=== PATIENT | female | born 1985 | race Caucasian/White ===

== ENCOUNTER 2016-08-12 11:53 | Emergency (ER) | payer OTHER ==
[~2016-08-12] VITALS: Ht 157.5 cm; Wt 92.8 kg
[~2016-08-12 11:53] MED LIST: IBUP-1277 PO; LEVOIUD INT UTER
[2016-08-12 11:55] VITALS: TEMP 36.9; Ht 157.5 cm; Wt 92.8 kg
[2016-08-12 12:42] LABS: BASO % 0.2 %; BASO ABS # 0.02 K/uL (0-0.2); COMPLETE YES; EOS % 0.9 %; HEMATOCRIT 36.8 % (37-47); IG% 0.6 %; LYMPH % 16.5 %; LYMPH ABS # 2.06 K/uL (1.2-3.4); MEAN CELL VOLUME 87.4 fL (80-100); MEAN CORPUSCULAR HEMOGLOBIN 30.6 pg (25-34); MEAN CORPUSCULAR HGB CONC 35.1 g/dl (32-36); MEAN PLATELET VOLUME 9.3 fL (7.4-10.4); MONO % 4.7 %; NEUT % 77.1 %; PLATELET COUNT 254 K/uL (130-400); RED BLOOD COUNT 4.21 M/uL (4.2-5.4)
[2016-08-12] MEDS ORDERED: PRENTAB26 PO (12:42)
[2016-08-12] MEDS ORDERED: ZNT/150 PO (12:42)
[2016-08-12 12:51] LABS: ALT/SGPT 26 U/L (12-78); BLOOD UREA NITROGEN 8 mg/dl (7-18); BUN/CREATININE RATIO 13.4 (10-20); CARBON DIOXIDE 21 mmol/L (21-32); CHLORIDE 106 mmol/L (98-107); CREATININE 0.56 mg/dl (0.60-1.20); GLUCOSE 83 mg/dl (70-99); POTASSIUM 3.8 mmol/L (3.5-5.1); SODIUM 137 mmol/L (136-145)
[2016-08-12 12:55] VITALS: O2SAT 98
[2016-08-12 12:55] LABS: ALB/GLOB RATIO 0.8 (0.9-2); ALKALINE PHOSPHATASE 44 U/L (45-117); AST/SGOT 11 U/L (15-37)
--- NOTE | 2016-08-12 13:15 | DIAGNOSTIC IMAGING REPORT ---
CHEST ONE VIEW PORTABLE CLINICAL HISTORY: left rib pain- pt COMPARISON STUDY: No previous studies for comparison. FINDINGS: The cardiac and mediastinal contours are normal. There is no evidence of focal pulmonary consolidation. There is no evidence of failure. No pleural effusions are visualized.[ No pneumothorax is visualized. No left-sided rib fractures are visualized. IMPRESSION: No active disease in the chest. Electronically signed by: John Gibson M.D. 08/12/2016 1:14 PM Dictated Date/Time: 08/12/2016 1:14 PM
--- NOTE | 2016-08-12 14:26 | EMERGENCY ROOM VISIT NOTE ---
History First contact with patient: 12:14 Chief Complaint: ABDOMINAL PAIN Stated Complaint: PAIN LEFT SIDE UNDER BREST, 14 WKS PREG Nursing Triage Summary: pt presents with abdominal pain she is 14 weeks is having left upper quadrant pain, describes the pain as a dull ache the pain radiates to epigastric area denies nausea states she has had vomiting and diarrhea that last few days, nothing this morning she has had emesis throughout her History of Present Illness The patient is a 30 year old female who presents to the Emergency Room with complaints of pain under her left breast. The patient reports that she initially developed this pain approximately 12 hours ago while she was laying down. She states it is a sharp pain in her left rib/upper abdomen. It is constant and worse with movement. She states it does radiate across to the center of her abdomen. She rates her overall discomfort a 6/10. She states that it feels tight and slightly more painful when she takes a deep breath. The patient is currently 14 weeks and is seen by [facility] BUSINESS DEVELOPER. She does report there has been a significant amount of vomiting with this , but it has otherwise been uneventful. The patient has had a few episodes of diarrhea earlier this week. She denies any blood in her stools, shortness of breath, palpitations or syncope. The patient denies any personal or family history of blood clots. She does not smoke. She denies any recent long travel or leg swelling/pain. She denies any cardiac history. Review of Systems A complete 10-point Review of Systems was discussed with the patient, with pertinent positives and negatives listed in the History of Present Illness. All remaining Review of Systems questions can be considered negative unless otherwise specified. Past Medical/Surgical History Medical Problems: (1) Chronic back pain (2) Psoriasis Family History Heart disease Stroke Social History Smoking Status: Former Smoker Drug Use: none Marital Status: Housing Status: lives with significant other Occupation Status: employed Current/Historical Medications Scheduled Multivit/Min/Iron/Fol Ac/Pren ( Vitamin), 1 TAB PO DAILY Scheduled PRN Ranitidine Hcl (Zantac), 150 MG PO DAILY PRN for UPSET STOMACH Allergies Uncoded Allergies: MINT (Adverse Reaction, Unknown, nausea, 03/11/15) Physical Exam Vital Signs Date Time Temp Pulse Resp B/P Pulse Ox O2 Delivery O2 Flow Rate FiO2 08/12/16 14:38 66 16 115/79 96 08/12/16 12:59 79 08/12/16 12:55 98 Room Air 08/12/16 12:55 92 16 120/84 98 Room Air 08/12/16 11:55 36.9 86 16 130/83 98 Room Air Physical Exam VITALS: Vitals are noted on the nurse's note and reviewed by myself. Vital signs stable. GENERAL: This is a 30-year-old female, in no acute distress, nondiaphoretic, well-developed well-nourished. SKIN: Capillary reflex less than 2 seconds. HEENT: Normocephalic. PERRLA. EOMI. Nares patent. Mucous membranes moist. Neck is supple without nuchal rigidity. HEART: Regular rate and rhythm without murmurs gallops or rubs. LUNGS: Clear to auscultation bilaterally without wheezes, rales or rhonchi. No retractions or accessory muscle use. ABDOMEN: Positive bowel sounds x 4. Soft, mild tenderness of the left upper quadrant. NEURO: Patient was alert and oriented to person place and time. Medical Decision & Procedures ER Provider Diagnostic Interpretation: CHEST ONE VIEW PORTABLE CLINICAL HISTORY: left rib pain- pt COMPARISON STUDY: No previous studies for comparison. FINDINGS: The cardiac and mediastinal contours are normal. There is no evidence of focal pulmonary consolidation. There is no evidence of failure. No pleural effusions are visualized.[ No pneumothorax is visualized. No left-sided rib fractures are visualized. IMPRESSION: No active disease in the chest. Laboratory Results 08/12/16 12:15 Red Blood Count 4.21, Mean Corpuscular Volume 87.4, Mean Corpuscular Hemoglobin 30.6, Mean Corpuscular Hemoglobin Concent 35.1, Mean Platelet Volume 9.3, Neutrophils (%) (Auto) 77.1, Lymphocytes (%) (Auto) 16.5, Monocytes (%) (Auto) 4.7, Eosinophils (%) (Auto) 0.9, Basophils (%) (Auto) 0.2, Neutrophils # (Auto) 9.65, Lymphocytes # (Auto) 2.06, Monocytes # (Auto) 0.59, Eosinophils # (Auto) 0.11, Basophils # (Auto) 0.02 08/12/16 12:15 Test 08/12/16 12:15 White Blood Count 12.50 K/uL (4.8-10.8) Red Blood Count 4.21 M/uL (4.2-5.4) Hemoglobin 12.9 g/dL (12.0-16.0) Hematocrit 36.8 % (37-47) Mean Corpuscular Volume 87.4 fL (80-100) Mean Corpuscular Hemoglobin 30.6 pg (25-34) Mean Corpuscular Hemoglobin Concent 35.1 g/dl (32-36) Platelet Count 254 K/uL (130-400) Mean Platelet Volume 9.3 fL (7.4-10.4) Neutrophils (%) (Auto) 77.1 % Lymphocytes (%) (Auto) 16.5 % Monocytes (%) (Auto) 4.7 % Eosinophils (%) (Auto) 0.9 % Basophils (%) (Auto) 0.2 % Neutrophils # (Auto) 9.65 K/uL (1.4-6.5) Lymphocytes # (Auto) 2.06 K/uL (1.2-3.4) Monocytes # (Auto) 0.59 K/uL (0.11-0.59) Eosinophils # (Auto) 0.11 K/uL (0-0.5) Basophils # (Auto) 0.02 K/uL (0-0.2) RDW Standard Deviation 38.2 fL (36.4-46.3) RDW Coefficient of Variation 12.0 % (11.5-14.5) Immature Granulocyte % (Auto) 0.6 % Immature Granulocyte # (Auto) 0.07 K/uL (0.00-0.02) D-Dimer 410 ug/L FEU (0-500) Anion Gap 10.0 mmol/L (3-11) Est Creatinine Clear Calc Drug Dose 153.0 ml/min Estimated GFR () 143.0 Estimated GFR (Non- 123.4 BUN/Creatinine Ratio 13.4 (10-20) Calcium Level 9.0 mg/dl (8.5-10.1) Total Bilirubin 0.2 mg/dl (0.2-1) Aspartate Amino Transf (AST/SGOT) 11 U/L (15-37) Alanine Aminotransferase (ALT/SGPT) 26 U/L (12-78) Alkaline Phosphatase 44 U/L (45-117) Troponin I < 0.015 ng/ml (0-0.045) Total Protein 7.4 gm/dl (6.4-8.2) Albumin 3.2 gm/dl (3.4-5.0) Globulin 4.2 gm/dl (2.5-4.0) Albumin/Globulin Ratio 0.8 (0.9-2) Lipase 115 U/L (73-393) ECG Rate (beats per minute): 74 Rhythm: normal sinus Findings: no acute ischemic change, no ectopy, other (low voltage QRS) Change: no significant change Medical Decision Differential diagnosis includes acute coronary syndrome, pulmonary embolism, pneumothorax, pericarditis, myocarditis, endocarditis, anxiety, musculoskeletal pain, GERD, gastritis, costochondritis, among others. The patient was evaluated as above. Labs were drawn and IV access was obtained. Imaging studies were performed and read by radiology as above. The patient was reassessed multiple times during their stay in the emergency department and remained in stable condition. The patient is a 30-year-old female who presents today complaining of left- sided chest pain. Labs revealed a mild leukocytosis consistent with . No concerning anemia or electrolyte abnormalities. D-dimer was not elevated. Troponin was not elevated. EKG did not show any ST elevation and was similar to a previous EKG. Chest x-ray was unremarkable. Given the patient's 12 hour duration of symptoms and negative troponin, and do not feel that this is cardiac in nature. The patient does not have any significant risk factors for pulmonary embolism except for . Given her relatively low risk and negative d-dimer, I do not feel that further workup is necessary to rule out pulmonary embolism. I do feel the patient's symptoms are likely secondary to gastritis and recommended that she take Zantac. heart tones were documented at 130 to 140 bpm. The patient was instructed to follow-up with her SOLAR BUSINESS DEVELOPER and primary care provider. She will return for any worsening symptoms. Based on the patient's presentation, lab results, and imaging studies, I feel the patient is stable for outpatient treatment. The patient's case was reviewed with Dr. Ricci, ED attending physician, who agreed with my assessment and treatment plan. Discharge instructions were reviewed with the patient. The patient verbalized understanding of my assessment and treatment plan and was discharged home in good condition. Impression Primary Impression: Left sided chest pain Departure Information Dispostion Home / Self-Care Condition GOOD Referrals Mohamud Jackson M.D.([facility]) (PCP) Thom Vazquez MD Patient Instructions My [facility] Additional Instructions You have been treated in the Emergency Department for your chest/abdominal pain. Take Zantac OTC daily. Call your SOLAR BUSINESS DEVELOPER to schedule follow-up. For pain control, you can use the following [id number] medicines (if >12 yo): - Regular strength (325mg/tab) Tylenol (acetaminophen) 2 tabs every 4-6 hours as needed. Do not exceed 12 tablets in a 24 hour period. Avoid taking more than 4 grams (4000 mg) of Tylenol per day. This includes any other sources of acetaminophen you may take on a regular basis. You should schedule a follow-up appointment with your Primary Care Provider in 2 -3 days for further evaluation from today's Emergency Department visit. Return to the Emergency Department if your current symptoms worsen despite treatment course outlined above, or if you develop any new/concerning symptoms.
[2016-08-12 14:38] VITALS: BP 115/79; PULSE 66; O2SAT 96
== END 2016-08-12 14:40 | disposition home or self-care (01) ==
LOC: C.EDB 11:54
DX: R07.9 Chest pain, unspecified (principal); O99.89 Other specified diseases and conditions complicating pregnancy, childbirth and the puerperium; Z82.49 Family history of ischemic heart disease and other diseases of the circulatory system; Z82.3 Family history of stroke; Z87.891 Personal history of nicotine dependence

== ENCOUNTER 2016-11-10 10:23 | Emergency (ER) | payer OTHER ==
[~2016-11-10] VITALS: Ht 157.5 cm; Wt 98.8 kg
[~2016-11-10 10:23] MED LIST changes: -IBUP-1277 PO; -LEVOIUD INT UTER; +PRENTAB26 PO; +ZNT/150 PO
[2016-11-10 10:39] VITALS: TEMP 36.7; Ht 157.5 cm; Wt 98.8 kg
[2016-11-10] MEDS ORDERED: ACET-1311 PO (10:51)
[2016-11-10] MEDS ORDERED: SODIUM CHLORIDE 0.9% 1000ML 1,000 ML IV ONE (11:05)
[2016-11-10] MEDS ORDERED: SODIUM CHLORIDE 0.9% 1000ML 1,000 ML IV STA (11:05)
--- NOTE | 2016-11-10 11:13 | EMERGENCY ROOM VISIT NOTE ---
History Report prepared by Osmar: Tori Napier Under the Supervision of: Dr. Stefan Canales M.D. First contact with patient: 10:51 Chief Complaint: ANXIETY Stated Complaint: UPPER BELLY NUMB/PAIN-PANIC ATTACK-27 WKS.-ER 1ST History of Present Illness The patient is a 31 year old female who presents to the Emergency Room with complaints of persistent anxiety over the past day. She currently rates her discomfort as a 4/10 in severity. The patient states that yesterday she was sent home from work with abdominal tightness and bilateral lower back pain. She states that she rested most of the day and felt okay. The patient states that she felt fine this morning when she woke up, but started feeling anxious as she was going to drop her daughter off at a day camp. She states that while driving home she suddenly developed a panic attack. The patient states that her vision began to become blurry and states that she had to nail puller and no longer drive. She reports a history of panic attacks when she was younger, but states that today's is much worse than it had ever been. The patient states that she is 26 weeks . She states that today she has noticed abdominal numbness. The patient states that she has been hyperventilating and notes lip numbness. She denies any history of a cholecystectomy. The patient states that this morning she took Zantac and Tylenol. The patient states that she has been three times, reporting 1 child at home, 1 miscarriage, and her current . She states that she has noticed lower abdominal cramping, but denies any contractions. The patient denies any vaginal bleeding. She reports a persistent headache. The patient states that she has had high stress from work. The patient's notes that the patient has been increasingly short of breath. Source of History: patient Onset: past day Position: other (global) Symptom Intensity: 4/10 Quality: other (anxiety) Timing: other (persistent) Associated Symptoms: + headache, + SOB, + abdominal pain (cramping), + numbness (abdominal, lip) Review of Systems See HPI for pertinent positives & negatives. A total of 10 systems reviewed and were otherwise negative. Past Medical & Surgical Medical Problems: (1) Chronic back pain (2) Psoriasis Old medical records were reviewed. Nurse's notes were reviewed and I agree with. Anxiety This is her third . She has one child and had one miscarriage Family History Heart disease Stroke Social History Smoking Status: Former Smoker Drug Use: none Marital Status: Housing Status: lives with significant other Occupation Status: employed Current/Historical Medications Scheduled Multivit/Min/Iron/Fol Ac/Pren ( Vitamin), 1 TAB PO DAILY Ranitidine Hcl (Zantac), 150 MG PO BID Scheduled PRN Acetaminophen (Tylenol), 325-650 MG PO Q4 PRN for Pain Allergies Uncoded Allergies: MINT (Adverse Reaction, Unknown, nausea, 03/11/15) Physical Exam Vital Signs Date Time Temp Pulse Resp B/P (MAP) Pulse Ox O2 Delivery O2 Flow Rate FiO2 11/10/16 14:16 74 18 122/74 98 11/10/16 13:00 76 22 124/72 98 Room Air 11/10/16 10:39 36.7 101 26 165/74 99 Room Air Physical Exam General: Well developed well nourished mildly anxious and intermittently teary eyed, gravid young female, mild hyperventilation. in no acute distress, breathing comfortably on room air. Normal speech HEENT: Normal cephalic atraumatic. Pupils are equal round and reactive to light. Extraocular movements are intact. Oropharynx is pink with moist mucous membranes. No swelling of the mouth lips or tongue. Neck: Supple with a midline trachea. No meningeal signs or stiffness, no JVD or bruits. No Stridor. Chest: Clear to auscultation bilaterally. No wheezes or rhonchi. No increased work of breathing. Heart: regular rate and rhythm. Abdomen: Gravid, mildly tender in right upper quadrant, no rebound guarding or rigidity. Extremities: No cyanosis clubbing or edema. No calf tenderness or assymetry Spine/Back. Non tender to palpation. No CVA tenderness Skin: Good turgor without rashes. Neurologic exam: Cranial nerves two through 12 are intact. Motor and sensation are intact and symmetrical throughout. Medical Decision & Procedures ER Provider Diagnostic Interpretation: Radiology results as stated below per my review and radiologist interpretation: ABDOMINAL ULTRASOUND, RIGHT UPPER QUADRANT HISTORY: Right upper quadrant abdominal pain.. COMPARISON: None. FINDINGS: Pancreas: The pancreas demonstrates a normal echotexture. Liver: Unremarkable. Gallbladder: Multiple gallstones. No gallbladder wall thickening. CBD: 5 mm. Right kidney: No hydronephrosis. IMPRESSION: Cholelithiasis. Electronically signed by: Zen Day M.D. 11/10/2016 12:55 PM Dictated Date/Time: 11/10/2016 12:54 PM Limited ultrasound LIMITED (US) CLINICAL HISTORY: eval for abd pain pain TECHNIQUE: Ultrasound COMPARISON STUDY: None FINDINGS: Single, viable intrauterine . Estimated gestational age is 26 weeks 6 days. Maternal cervix is closed. Internal cervix measures 4.5 cm. Amniotic fluid index is 11.9 cm. heart rate is 140 bpm. IMPRESSION: Single, viable intrauterine with an estimated gestational age of 26 weeks 6 days gestational age. Electronically signed by: Eduard Eduardo M.D. 11/10/2016 1:03 PM Dictated Date/Time: 11/10/2016 12:55 PM Laboratory Results 11/10/16 11:40 Red Blood Count 3.84, Mean Corpuscular Volume 89.1, Mean Corpuscular Hemoglobin 29.7, Mean Corpuscular Hemoglobin Concent 33.3, Mean Platelet Volume 8.9, Neutrophils (%) (Auto) 75.4, Lymphocytes (%) (Auto) 16.0, Monocytes (%) (Auto) 5.7, Eosinophils (%) (Auto) 0.8, Basophils (%) (Auto) 0.3, Neutrophils # (Auto) 8.65, Lymphocytes # (Auto) 1.84, Monocytes # (Auto) 0.65, Eosinophils # (Auto) 0.09, Basophils # (Auto) 0.03 11/10/16 11:40 Test 11/10/16 11:40 11/10/16 11:43 White Blood Count 11.47 K/uL (4.8-10.8) Red Blood Count 3.84 M/uL (4.2-5.4) Hemoglobin 11.4 g/dL (12.0-16.0) Hematocrit 34.2 % (37-47) Mean Corpuscular Volume 89.1 fL (80-100) Mean Corpuscular Hemoglobin 29.7 pg (25-34) Mean Corpuscular Hemoglobin Concent 33.3 g/dl (32-36) Platelet Count 228 K/uL (130-400) Mean Platelet Volume 8.9 fL (7.4-10.4) Neutrophils (%) (Auto) 75.4 % Lymphocytes (%) (Auto) 16.0 % Monocytes (%) (Auto) 5.7 % Eosinophils (%) (Auto) 0.8 % Basophils (%) (Auto) 0.3 % Neutrophils # (Auto) 8.65 K/uL (1.4-6.5) Lymphocytes # (Auto) 1.84 K/uL (1.2-3.4) Monocytes # (Auto) 0.65 K/uL (0.11-0.59) Eosinophils # (Auto) 0.09 K/uL (0-0.5) Basophils # (Auto) 0.03 K/uL (0-0.2) RDW Standard Deviation 42.0 fL (36.4-46.3) RDW Coefficient of Variation 13.1 % (11.5-14.5) Immature Granulocyte % (Auto) 1.8 % Immature Granulocyte # (Auto) 0.21 K/uL (0.00-0.02) Anion Gap 10.0 mmol/L (3-11) Est Creatinine Clear Calc Drug Dose 162.8 ml/min Estimated GFR () 143.7 Estimated GFR (Non- 124.0 BUN/Creatinine Ratio 16.3 (10-20) Calcium Level 8.6 mg/dl (8.5-10.1) Total Bilirubin 0.3 mg/dl (0.2-1) Direct Bilirubin < 0.1 mg/dl (0-0.2) Aspartate Amino Transf (AST/SGOT) 13 U/L (15-37) Alanine Aminotransferase (ALT/SGPT) 28 U/L (12-78) Alkaline Phosphatase 49 U/L (45-117) Total Protein 6.8 gm/dl (6.4-8.2) Albumin 2.9 gm/dl (3.4-5.0) Lipase 121 U/L (73-393) Bedside Troponin I < 0.030 ng/ml (0-0.045) Laboratory studies as stated above per my review. Medications Administered Medications (Trade) Dose Ordered Sig/Davin Route Start Time Stop Time Status Last Admin Dose Admin Sodium Chloride 1,000 ml @ 999 mls/hr Q1H1M STAT IV 11/10/16 11:05 11/10/16 12:05 DC 11/10/16 11:20 999 MLS/HR Diphenhydramine HCl (Benadryl Cap) 25 mg NOW ONCE PO 11/10/16 13:00 11/10/16 13:01 DC 11/10/16 12:59 25 MG ECG Indication: other (anxiety) Rate (beats per minute): 85 Rhythm: normal sinus Findings: no acute ischemic change, no ectopy Comparison ECG Date: 08/12/16 Change: no significant change ED Course 1054: Past medical records reviewed. The patient was evaluated in room A10, and a complete history and physical examination were performed. 1105: Ordered Sodium Chloride 1000 ml @ 999 mls/hr IV. 1110: I offered the patient Phenergan at this time but she declined. 1300: Per nursing staff, the patient is requesting Benadryl. Ordered Benadryl Cap 25 mg PO. 1329: I reevaluated the patient and she is doing well. charity fundraiser will be consulted. 1340: I discussed the patients case with charity fundraiser. They feel that the patient is okay for discharge. 1403: I reevaluated the patient and she is doing well. I discussed the exam findings with her and I discussed the treatment plan. She verbalized complete understanding and agreement. She is ready to go home. Medical Decision Differentials include, but are not limited to; anxiety, gallbladder disease, related complication, labor, PE. Blood pressure Screening: Patient was found to have normal blood pressure on screening and does not require follow-up. Medication Reconciliation: I attest that I have personally reviewed the patient' s current medication list. This patient comes in as described above she is she's been feeling very anxious today. She is teary-eyed. She has some tingling in her right upper quadrant and mild pain on palpation. She looks well otherwise she is in no respiratory distress. She was hyperventilating earlier. She was given Benadryl 25 mg by mouth and felt significantly better and was back at baseline. EKG does not suggest acute coronary syndrome or arrhythmia. Her troponin is not elevated. She has no acute electrode or metabolic abnormalities. White count is mildly elevated. She has no elevation of LFTs. Ultrasound shows a normal IUP with a heartbeat at 27 weeks. She has gallstones but no evidence of acute cholecystitis. She has no pleurisy or symptoms which would suggest a PE I think that her symptoms are related to anxiety and possibly she could have some gallbladder spasms her gallstones causing her some of her symptoms as well she should avoid feet fatty or greasy foods. She can use Benadryl sparingly if needed for anxiety. Return if : shortness of breath ,chest pain, worsening symptoms, any new problems or concerns. The patient and her were happy with plan and she was discharged home. I further discussed the care with the patient's supervisor cell room who agrees with the plan. Consults Time Called: 1329 Consulting Physician: charity fundraiser Returned Call: 1340 I discussed the patients case with charity fundraiser. They feel that the patient is okay for discharge. Impression Primary Impression: Anxiety Additional Impressions: Gall stones Scribe Attestation The scribe's documentation has been prepared under my direction and personally reviewed by me in its entirety. I confirm that the note above accurately reflects all work, treatment, procedures, and medical decision making performed by me. Departure Information Dispostion Home / Self-Care Referrals Mohamud Jackson M.D.([facility]) (PCP) Forms HOME CARE DOCUMENTATION FORM, IMPORTANT VISIT INFORMATION Patient Instructions My [facility] Additional Instructions Rest. Have a mild diet and avoid fatty or greasy or spicy foods Return if: Worsening of symptoms, shortness of breath, fever or chills, vaginal bleeding or discharge or contractions, any new problems or concerns. For anxiety may use Benadryl 25 mg every 8 hours. It may make you drowsy do not take before drinking, driving, working Follow-up with your doctor this week for recheck Problem Qualifiers
[2016-11-10 11:52] LABS: BASO % 0.3 %; BASO ABS # 0.03 K/uL (0-0.2); COMPLETE YES; EOS % 0.8 %; HEMATOCRIT 34.2 % (37-47); IG% 1.8 %; LYMPH ABS # 1.84 K/uL (1.2-3.4); MEAN CELL VOLUME 89.1 fL (80-100); MEAN CORPUSCULAR HEMOGLOBIN 29.7 pg (25-34); MEAN CORPUSCULAR HGB CONC 33.3 g/dl (32-36); MEAN PLATELET VOLUME 8.9 fL (7.4-10.4); MONO % 5.7 %; NEUT % 75.4 %; PLATELET COUNT 228 K/uL (130-400); RED BLOOD COUNT 3.84 M/uL (4.2-5.4); WHITE BLOOD COUNT 11.47 K/uL (4.8-10.8)
[2016-11-10 12:10] LABS: ALT/SGPT 28 U/L (12-78); BLOOD UREA NITROGEN 9 mg/dl (7-18); BUN/CREATININE RATIO 16.3 (10-20); CALCIUM 8.6 mg/dl (8.5-10.1); CARBON DIOXIDE 22 mmol/L (21-32); CHLORIDE 108 mmol/L (98-107); CREATININE 0.54 mg/dl (0.60-1.20); GLUCOSE 78 mg/dl (70-99); POTASSIUM 3.8 mmol/L (3.5-5.1); SODIUM 140 mmol/L (136-145)
[2016-11-10 12:13] LABS: ALKALINE PHOSPHATASE 49 U/L (45-117); AST/SGOT 13 U/L (15-37)
--- NOTE | 2016-11-10 12:56 | DIAGNOSTIC IMAGING REPORT ---
ABDOMINAL ULTRASOUND, RIGHT UPPER QUADRANT HISTORY: Right upper quadrant abdominal pain.. COMPARISON: None. FINDINGS: Pancreas: The pancreas demonstrates a normal echotexture. Liver: Unremarkable. Gallbladder: Multiple gallstones. No gallbladder wall thickening. CBD: 5 mm. Right kidney: No hydronephrosis. IMPRESSION: Cholelithiasis. Electronically signed by: Zen Day M.D. 11/10/2016 12:55 PM Dictated Date/Time: 11/10/2016 12:54 PM
--- NOTE | 2016-11-10 13:05 | DIAGNOSTIC IMAGING REPORT ---
Limited ultrasound LIMITED (US) CLINICAL HISTORY: eval for abd pain pain TECHNIQUE: Ultrasound COMPARISON STUDY: None FINDINGS: Single, viable intrauterine . Estimated gestational age is 26 weeks 6 days. Maternal cervix is closed. Internal cervix measures 4.5 cm. Amniotic fluid index is 11.9 cm. heart rate is 140 bpm. IMPRESSION: Single, viable intrauterine with an estimated gestational age of 26 weeks 6 days gestational age. Electronically signed by: Eduard Eduardo M.D. 11/10/2016 1:03 PM Dictated Date/Time: 11/10/2016 12:55 PM
[2016-11-10 14:16] VITALS: BP 122/74; PULSE 74; O2SAT 98
== END 2016-11-10 14:17 | disposition home or self-care (01) ==
LOC: C.EDB 10:25 → C.EDA 14:17
DX: O26.92 Pregnancy related conditions, unspecified, second trimester (principal); F41.9 Anxiety disorder, unspecified; K85.10 Biliary acute pancreatitis without necrosis or infection; G89.29 Other chronic pain; Z87.891 Personal history of nicotine dependence; Z79.899 Other long term (current) drug therapy; Z91.018 Allergy to other foods; Z82.49 Family history of ischemic heart disease and other diseases of the circulatory system; Z82.3 Family history of stroke

== ENCOUNTER 2017-02-07 01:03 | Inpatient (IN) | payer OTHER ==
[~2017-02-07] VITALS: Ht 157.5 cm; Wt 106.1 kg
[~2017-02-07 01:03] MED LIST changes: +ACET-1311 PO
[2017-02-07 01:45] VITALS: Ht 157.5 cm; Wt 106.1 kg
[2017-02-07] MEDS ORDERED: CALC500C3 (01:45)
[2017-02-07] MEDS ORDERED: LACTATED RINGER'S 1000ML 1,000 ML IV PRN (02:02)
[2017-02-07] MEDS ORDERED: BUPIVACAINE 0.25% 30 ML VIAL ONE (02:24)
[2017-02-07] MEDS ORDERED: FENTANYL 2MCG/ML ROPIV 1.25MG/ML 100ML BAG EPI ONE (02:24)
[2017-02-07] MEDS ORDERED: EpHEDrine SULFATE INJ 50 MG/ML AMP ONE (02:24)
[2017-02-07] MEDS ORDERED: FENTANYL CITRATE INJ 50 MCG/1 ML 2 ML VIAL ONE (02:24)
[2017-02-07 02:34] LABS: HEMATOCRIT 35.7 % (37-47); MEAN CELL VOLUME 87.7 fL (80-100); MEAN CORPUSCULAR HEMOGLOBIN 29.5 pg (25-34); MEAN CORPUSCULAR HGB CONC 33.6 g/dl (32-36); MEAN PLATELET VOLUME 9.3 fL (7.4-10.4); PLATELET COUNT 189 K/uL (130-400); RED BLOOD COUNT 4.07 M/uL (4.2-5.4); WHITE BLOOD COUNT 13.11 K/uL (4.8-10.8)
[2017-02-07] MEDS ORDERED: PENICILLIN G POTASSIUM IV 6 MU in DEXTROSE 5% 250ML 250 ML IV STA (02:36)
--- NOTE | 2017-02-07 02:42 | HISTORY & PHYSICAL EXAMINATION ---
DATE OF ADMISSION: 02/07/2017 CHIEF COMPLAINT: Contractions. HISTORY OF PRESENT ILLNESS: The patient is a 31-year-old -0-0-1 at 39 weeks and 4 days of gestation who has been feeling uterine contractions since yesterday morning. They have been irregular every 15-20 minutes and they got more closer and closer, and now coming every 5 minutes. She rates the pain 9/10. She denies leakage of fluid or vaginal bleeding. She was in the office yesterday afternoon and her cervix was 2 cm dilated 50% effaced. She reports good movements. She denies headaches, chest pain, shortness of breath, nausea or vomiting. Her has been uncomplicated except: 1. Obesity class 2. 2. GBS culture positive. 3. Headache in . PAST MEDICAL HISTORY: As above. PAST SURGICAL HISTORY: Knee surgery for meniscectomy. ALLERGIES: MINT FLAVORING CAUSES NAUSEA, VOMITING. No known drug allergies. MEDICATIONS: Benadryl 25 mg as needed, Sudafed, children's vitamins chewable once a day, Tums 500 mg as needed, Tylenol as needed, and Zantac 150 mg once a day. SOCIAL HISTORY: The patient denies smoking, alcohol or drug use. GYNECOLOGIC HISTORY: The patient denies any history of STDs including Chlamydia, gonorrhea, or herpes. She has a history of infertility. OBSTETRICAL HISTORY: The patient had full term spontaneous vaginal delivery in 2007. LABORATORY DATA: Her blood type is A positive, antibody screen negative, HIV nonreactive, hepatitis B surface antigen negative, RPR nonreactive, rubella titer positive. H&H was 13/40. GC chlamydia cultures were negative. Urine culture was negative and quad screening testing was negative and Glucola was 130 mg per deciliter, 3-hour GTT : 1 hour elevated to 184 mg per deciliter. GBS culture was positive on 01/16/2017. PHYSICAL EXAMINATION: GENERAL: The patient is alert, oriented x3. She is in moderate distress with contractions. VITAL SIGNS: Blood pressure is 131/79, temperature 97.6 Fahrenheit, pulse 79, respiration 20. CARDIOVASCULAR SYSTEM: S1, S2, RRR. LUNGS: Clear to auscultation bilaterally. ABDOMEN: Soft, gravid. Manuel 8 pounds. EXTREMITIES: Nontender, no edema. PELVIC: Cervix is 5 cm dilated, 90% effaced, vertex and -2. heart rate 125 baseline, category 1 with good accelerations, no decelerations, moderate variability. Tocometer contractions every 4-5 minutes. ASSESSMENT AND PLAN: The patient is a 31-year-old 2, para 1-0-0-1 at 39 weeks and 4 days of gestation presenting with contractions and cervical change. Vital signs stable, afebrile. GBS positive, heart rate reassuring. PLAN: Admit, start IV, CBC and epidural for pain per patient request and penicillin for GBS and anticipate spontaneous vaginal delivery. All questions were answered. MTDD
[2017-02-07] MEDS: LACTATED RINGER'S 1000ML 1,000 ML IV SCH ×2 (03:03→09:53)
[2017-02-07] MEDS ORDERED: NALOXONE HCL INJ 1 MG in SODIUM CHLORIDE 0.9% 1000ML 1,000 ML IV PRN (03:50)
[2017-02-07] MEDS ORDERED: LACTATED RINGER'S 1000ML 500 ML IV PRN (03:50)
[2017-02-07] MEDS ORDERED: PROMETHAZINE HCL INJ 6.25 MG in SODIUM CHLORIDE 0.9% 50ML 50 ML IV PRN (04:00)
[2017-02-07] MEDS ORDERED: ONDANSETRON INJ 2 MG/ML 2 ML VIAL IV PRN (04:00)
[2017-02-07] MEDS ORDERED: NALOXONE HCL INJ 0.4 MG/1 ML VIAL/CARP IV PRN (04:00)
[2017-02-07] MEDS ORDERED: NALBUPHINE HCL INJ 10 MG/ML AMP IV PRN (04:00)
[2017-02-07] MEDS ORDERED: DiphenhydrAMINE HCL 50 MG/ML VIAL IV PRN (04:00)
[2017-02-07] MEDS ORDERED: EpHEDrine SULFATE INJ 50 MG/ML AMP IV PRN (04:00)
[2017-02-07] MEDS: PENICILLIN G POTASSIUM IV 3 MU in DEXTROSE 5% 100ML 100 ML IV PRN ×2 (06:37→10:18)
[2017-02-07] MEDS: FENTANYL 2MCG/ML ROPIV 1.25MG/ML 100ML BAG EPI PRN ×2 (06:58→12:15)
[2017-02-07] MEDS ORDERED: OXYTOCIN 30 UNITS/500ML NSS IV ONE (14:13)
[2017-02-07] MEDS ORDERED: OXYCODONE/ACETAMINOPHEN 5-325 TAB PO PRN (14:30)
[2017-02-07] MEDS ORDERED: HYDROCORTISONE ACETATE 25 MG SUPP PR PRN (14:30)
[2017-02-07] MEDS ORDERED: SUPERCREAM 0.870 % 15GM JAR EXT PRN (14:30)
[2017-02-07] MEDS ORDERED: OXYTOCIN 30 UNITS/500ML NSS IV PRN (14:30)
[2017-02-07] MEDS ORDERED: ACETAMINOPHEN/CODEINE 300/30MG TAB PO PRN ×2 (14:30)
[2017-02-07] MEDS ORDERED: BENZOCAINE 20% AER SPR 82.5 GM CAN EXT PRN (14:30)
[2017-02-07] MEDS ORDERED: ACETAMINOPHEN 325 MG TAB PO PRN (14:30)
[2017-02-07] MEDS ORDERED: LANOLIN OINT EXT PRN ×2 (14:30)
--- NOTE | 2017-02-07 15:53 | Anesthesia Procedure Note ---
Anesthesia Epidural Removal Nt Date & Time Feb 07, 2017 at 15:53 Vital Signs Pain Intensity: 0.0 Notes Mental Status: alert / awake / arousable, participated in evaluation Nausea / Vomiting: adequately controlled Pain: adequately controlled Airway Patency, RR, SpO2: stable & adequate BP & HR: stable & adequate Hydration State: stable & adequate Neuraxial Anesthesia: was administered Anesthetic Complications: no major complications apparent, pt satisfied with anesthetic care Epidural: removed without complications, with tip intact
[2017-02-07 17:30] VITALS: BP 130/84; PULSE 101; TEMP 37; O2SAT 96
[2017-02-07] MEDS: DOCUSATE SODIUM 100 MG CAP PO SCH (19:59)
[2017-02-07 20:00] VITALS: BP 109/67; PULSE 89; TEMP 36.9; O2SAT 98
[2017-02-07 23:15] VITALS: BP 115/80; PULSE 93; TEMP 36.8; O2SAT 96
[2017-02-07] MEDS: IBUPROFEN 600 MG TAB PO PRN (23:20)
--- NOTE | 2017-02-07 23:55 | DELIVERY SUMMARY ---
DATE OF OPERATION: 02/07/2017 DELIVERY NOTE: The patient delivered a live female in occiput anterior presentation. There was nuchal cord which was easily reduced. was delivered and placed on mother's abdomen. Cord clamp was done after 1 minute 30 seconds. Cord gas and cord blood was obtained. Placenta was spontaneously delivered. Inspection of the placenta shows a 3-vessel cord. Inspection of the perineum showed a second-degree midline laceration which was repaired with 2-0 Vicryl in layers. There is good hemostasis at end of the repair. ESTIMATED BLOOD LOSS: 400 mL. All instruments are removed from the vagina and accounted for including lap, sponges and needles. Baby and mother are doing well in recovery. I attest to the content of the Intraoperative Record and any orders documented therein. Any exception s are noted below.
[2017-02-08 04:00] VITALS: BP 130/86; PULSE 87; TEMP 36.6; O2SAT 98
[2017-02-08 06:17] LABS: HEMATOCRIT 35.1 % (37-47)
[2017-02-08 08:00] VITALS: BP 121/78; PULSE 89; TEMP 36.9
[2017-02-08] MEDS: PRENATAL VITAMIN TAB PO SCH (08:01)
[2017-02-08] MEDS: FERROUS SULFATE 325 MG TAB PO SCH (08:01)
[2017-02-08] MEDS: IBUPROFEN 600 MG TAB PO PRN ×3 (08:01→21:28)
[2017-02-08] MEDS: DOCUSATE SODIUM 100 MG CAP PO SCH ×2 (08:01→19:47)
--- NOTE | 2017-02-08 09:25 | OB/GYN Progress Note ---
MUSEUM SPECIALIST Progress Note Date of Service Feb 08, 2017. Subjective conversation w/ patient, physical exam Ambulation: ambulating normally Voiding: no voiding problems Passing Gas: Yes Diet Tolerance: Regular Diet Lochia: Small Feeding Type: Breast Feeding Pain: 05/31 Notes: Doing well, no concerns. Ambulating without difficulty. Tolerating regular diet. Lochia minimal. Objective Vital Signs Date Time Temp Pulse Resp B/P (MAP) Pulse Ox O2 Delivery O2 Flow Rate FiO2 02/08/17 08:00 36.9 89 18 121/78 (92) Room Air 02/08/17 04:00 36.6 87 18 130/86 (101) 98 Room Air 02/07/17 23:15 96 Room Air 02/07/17 23:15 36.8 93 18 115/80 (92) 96 Room Air 02/07/17 20:00 36.9 89 16 109/67 (81) 98 Room Air 02/07/17 20:00 98 Room Air 02/07/17 17:30 37.0 101 16 130/84 (99) 96 Room Air Physical Exam General Appearance: WELL-APPEARING Respiratory/Chest: chest non-tender, lungs clear Cardiovascular: regular rate, rhythm Abdomen: normal bowel sounds, soft Fundus: Firm Extremities: normal range of motion, non-tender, no calf tenderness Laboratory Results Last 24 Hours Test 02/08/17 05:51 Hemoglobin 11.2 g/dL Hematocrit 35.1 % Assessment and Plan Post- Day Number: 1 Continue Routine Care: -Continue routine care -Anticipate d/c home tomorrow
[2017-02-08 12:00] VITALS: BP 125/78; PULSE 82; TEMP 36.8
[2017-02-08 16:00] VITALS: BP 128/81; PULSE 79; TEMP 36.8
[2017-02-08] MEDS ORDERED: BISACODYL 5 MG TABEC PO SCH (20:00)
[2017-02-08 23:15] VITALS: BP 117/81; PULSE 71; TEMP 36.6; O2SAT 98
[2017-02-09] MEDS: IBUPROFEN 600 MG TAB PO PRN (06:53)
[2017-02-09] MEDS ORDERED: BISACODYL 10 MG SUPP PR PRN (07:00)
[2017-02-09] MEDS: DOCUSATE SODIUM 100 MG CAP PO SCH (07:53)
[2017-02-09] MEDS: PRENATAL VITAMIN TAB PO SCH (07:53)
[2017-02-09] MEDS: FERROUS SULFATE 325 MG TAB PO SCH (07:53)
[2017-02-09 08:15] LABS: HEMATOCRIT 35.6 % (37-47); MEAN CELL VOLUME 89.9 fL (80-100); MEAN CORPUSCULAR HEMOGLOBIN 29.8 pg (25-34); MEAN CORPUSCULAR HGB CONC 33.1 g/dl (32-36); MEAN PLATELET VOLUME 9.3 fL (7.4-10.4); PLATELET COUNT 192 K/uL (130-400); RED BLOOD COUNT 3.96 M/uL (4.2-5.4); WHITE BLOOD COUNT 10.79 K/uL (4.8-10.8)
[2017-02-09 09:15] VITALS: BP 115/76; PULSE 81; TEMP 36.6
--- NOTE | 2017-02-09 10:03 | OB/GYN Progress Note ---
ACCESS ANALYST Progress Note Date of Service: Feb 09, 2017. Patient is seen and examined. She feels well, no complaints. Likes to go home Ambulating without dizziness Voiding without difficulty Tolerating regular diet with out N&V Bleeding is minimal No fever/ chills/ CP/ SOB/ N&V/ Leg pain Breast feeding without problems Date Time Temp Pulse Resp B/P (MAP) Pulse Ox O2 Delivery O2 Flow Rate FiO2 02/08/17 23:15 98 Room Air 02/08/17 23:15 36.6 71 18 117/81 (93) 98 Room Air 02/08/17 16:20 Room Air 02/08/17 16:00 36.8 79 18 128/81 (97) Room Air 02/08/17 12:00 36.8 82 18 125/78 (94) Room Air Last 24 Hours Test 02/09/17 07:31 White Blood Count 10.79 K/uL Red Blood Count 3.96 M/uL Hemoglobin 11.8 g/dL Hematocrit 35.6 % Mean Corpuscular Volume 89.9 fL Mean Corpuscular Hemoglobin 29.8 pg Mean Corpuscular Hemoglobin Concent 33.1 g/dl RDW Standard Deviation 46.1 fL RDW Coefficient of Variation 14.0 % Platelet Count 192 K/uL Mean Platelet Volume 9.3 fL PE: General: Alert, orientedx3, NAD Abd: soft, NT, fundus firm, below Umbilicus Perineum intact, Lochia rubra minimal Ext; NT, no edema AP: 31 yo s/p , ppd# 2 VSS Afebrile doing well Continue routine care All questions were answered D/C home , f/u in office
--- NOTE | 2017-02-09 10:04 | Discharge Instructions ---
Discharge Instructions Date of Service Feb 09, 2017. Admission Reason for Admission: Uterine Contractions At Greater Than 20 Weeks Discharge Discharge Diagnosis / Problem: Discharge Goals Goal(s): Routine recovery after delivery Activity Recommendations Activity Limitations: as noted below ACTIVITY RECOMMENDATIONS: * Gradual return to full activity over the next 2-3 weeks. * No lifting - nothing heavier than baby over the next 2-3 weeks. * Do not engage in vigorous exercise, sexual activity or sports until cleared by your physician. * Do not drive or operate any motorized equipment until cleared by your physician. * You may shower/bathe daily. BREAST CARE: If you are not breast feeding: * Wear a supportive bra 24 hours a day for one to two weeks. * Avoid stimulating your breasts and nipples as much as possible during the first few weeks after delivery. * When taking a shower, have the warm water hit your back, not breasts. * When your breasts feel full, apply ice packs. Usually three to four times a day helps ease the discomfort. * Take a mild pain medication (Tylenol/Motrin) when you are uncomfortable. If breast feeding: * Use breast milk to lubricate nipples. Lansinoh cream may be used for sore nipples. You do not need to remove cream prior to breast feeding. If using a different brand of cream, check the label for directions regarding removal of cream prior to nursing. * Wear a supportive bra. * If having problems with breasts or breast feeding, call a furniture sales consultant or your health care provider. EPISIOTOMY CARE: After delivery, if you have an episiotomy (stitches), the following steps will ease discomfort and aid healing. * For the first 24 hours after delivery, place ice packs next to your episiotomy to help reduce swelling. * After the first 24 hour-period, sitz baths, either portable or in the tub, are suggested. A shower with a shower arm sprayed over the episiotomy may be comforting. * [place]oke care should be done after each voiding and bowel movement. Squirt warm water from a plastic bottle over the perineum (region of the body between the anus and urinary opening) and pat dry. * Use Dermoplast to ease discomfort. Shake container. [place] directly over the episiotomy. * Place a Tucks on a clean sanitary pad next to your episiotomy. OVER THE COUNTER MEDICATION: * For discomfort or pain, you may use Acetaminophen (Tylenol), Ibuprofen (Advil ), or Naproxen (Aleve) following the package directions. * For constipation you may use Colace following the package directions. SPECIAL CARE INSTRUCTIONS: When you are discharged from the hospital, it is important for you to follow the instructions listed below: * During the first week at home, you should be able to care for yourself and your baby. In addition, the usual light household activities are encouraged. * Limit your activities to the way you feel. Do not try to clean the house or move furniture. Be sensible. * If you actively engage in sports and have done so up until the time of your delivery, you may resume these activities as soon as you feel able. This may take up to one month or even longer. Use good judgment. * Continue to take your vitamins for at least six weeks after the of your baby. * Your diet need not be limited unless you were on a special diet before your delivery. Breast-feeding mothers need around 2500 calories per day and at least 64-80 ounces of fluid per day (8 to 10 glasses). * You should eat foods from the four major food groups. Crash diets or fad diets are to be avoided. Eating lean meats, fresh fruits and vegetables, low-fat dairy products, high fiber foods and a regular exercise program, will help you get back to your pre- weight without putting your health at risk. * Constipation is sometimes a problem after delivery. Take a mild laxative as needed. If breast feeding, Milk of Magnesia is acceptable to use. You may use a suppository or Fleets enema if no episiotomy. * A daily shower or tub bath is suggested. Be sure to thoroughly and gently dry the perineum. * A bloody vaginal discharge will usually continue until around four weeks post . A small amount of bleeding may continue for as long as six weeks. Vaginal discharge changes from the bright red bleeding after delivery to pink then brownish and finally yellowish-pink before becoming white and disappearing. * Bleeding may increase with activity. Your first period may come in 4-8 weeks. If you are breast feeding, your period may be delayed even longer. * [place] (sex) can begin whenever both you and your partner feel comfortable and do not have any form of genital infection. It is recommended that you wait until after your return appointment and discuss with your physician. If you have questions, please talk to your health care practitioner. A condom should be used to prevent infection and . * Foreplay, gentle intercourse and lubrication is very important the first several times to prevent pain. A water-based lubricant such as K-Y jelly or Astroglide may be used. * Tampons may be used six weeks after delivery. * Douching should be avoided for 6 weeks after delivery. * If you have RH negative blood and your baby is RH positive, you will receive RHOGAM by injection prior to discharge. The nurse will give you a card to keep with you that has the date and place that you received RHOGAM after delivery. * During your care, you had a Rubella screen done to check for the presence of rubella antibodies in your blood. If your test was negative, you will receive a Rubella vaccine prior to discharge. This vaccine may cause a fever, soreness at the injection site and flu-like symptoms. If these symptoms persist, notify your health care practitioner. is not advised for three months after a Rubella vaccine. There is a higher chance of having a baby with defects if conceived within three months of getting the vaccine. * If you were discharged 24 hours from delivery or before 48 hours: Visiting nurses will come to your home 48 hours after discharge to assess you and your baby. The visiting nurse will meet with you while you are in the hospital to arrange a time and get directions to your home. * Verbalizes understanding of car seat law as reviewed with patient nursing. * Car Seat hand-out given and reviewed with patient by nursing. * Shaken baby information reviewed with patient by nursing. Call you doctor if: * Heavy bleeding (saturating several pads an hour) or passing clots the size of your fist. * A fever >101 degrees F (38.3 degrees C) on two occasions four hours apart and/or chills. * Unusual pain in the pelvic or vaginal areas. * "Baby Blues" lasting longer than two weeks. If you have any questions or concerns, call your health care practitioner at . FOLLOW-UP VISIT: * Please call the office at to schedule a 6 week examination. It is important you keep this appointment. * It is important for you to make arrangements for either yearly or twice yearly check-ups thereafter. . Current Hospital Diet Patient's current hospital diet: Regular OB Diet Discharge Diet Recommended Diet: Regular Diet Pending Studies Studies pending at discharge: no Medical Emergencies . Who to Call and When: Medical Emergencies: If at any time you feel your situation is an emergency, please call 911 immediately. . Non-Emergent Contact Non-Emergency issues call your: Surgeon Call Non-Emergent contact if: temperature is above 101, your pain is not controlled, your pain is worsening . . "Provider Documentation" section prepared by Rian Louise. . VTE Core Measure Inpt VTE Proph given/why not?: Treatment not indicated
[2017-02-09 11:50] VITALS: BP_DIAS 76; PULSE 81; TEMP 36.6
== END 2017-02-09 12:10 | disposition home or self-care (01) | DRG 775 ==
LOC: C.OPB 01:03 → C.LD 01:04 → C.OPB 02:03 → C.LD 02:03 → C.OBG 17:44
PROVIDERS: ADMIT Obstetrics & Gynecology; ATTEND Obstetrics & Gynecology
PROC: 0KQM0ZZ Repair Perineum Muscle, Open Approach (ICD-10-PCS; principal; 2017-02-07)
PROC: 10E0XZZ Delivery of Products of Conception, External Approach (ICD-10-PCS; principal; 2017-02-07)
DX: O99.824 Streptococcus B carrier state complicating childbirth (principal); O70.1 Second degree perineal laceration during delivery; O69.81X0 Labor and delivery complicated by cord around neck, without compression, not applicable or unspecified; O99.214 Obesity complicating childbirth; E66.9 Obesity, unspecified; Z3A.39 39 weeks gestation of pregnancy; Z37.0 Single live birth